=== PATIENT | female | born 1960 ===

== ENCOUNTER → 2023-11-19 07:57 | Outpatient (REF) | payer BC, SELFPAY | LOC: RAD 07:57 | PROVIDERS: ATTENDING PHYSICIAN Physician Assistant | DX: J40 Bronchitis, not specified as acute or chronic (principal); J45.20 Mild intermittent asthma, uncomplicated; R05.1 Acute cough | CPT/HCPCS: 71046 ==

== ENCOUNTER → 2024-06-14 14:50 | Outpatient (REF) | payer BC, SELFPAY | LOC: RCS 14:50 | PROVIDERS: ATTENDING PHYSICIAN Nurse Practitioner Gerontology; FAMILY PHYSICIAN Physician Assistant | DX: R00.2 Palpitations (principal); I34.0 Nonrheumatic mitral (valve) insufficiency | CPT/HCPCS: 93306 ==

== ENCOUNTER 2024-09-13 05:57 | Emergency (ER) | payer BC, SELFPAY ==
[2024-09-13 05:59] VITALS: BMI 28.2
[2024-09-13 06:01] VITALS: BP 176/75
--- NOTE | 2024-09-13 06:12 | ED.GENMED ---
History of Present Illness
General
Chief Complaint: Chest Pain
Source: patient and ambulance crew
Exam Limitations: none
Time Seen by Provider: 09/13/24 06:05
Nursing documentation reviewed up to this point in time: agreed with
History of Present Illness
History of Present Illness:
64-year-old female presents to the emergency department complaining of heart racing, dizziness, lightheaded and pressure in her chest. It is in the middle of her chest. This occurred about 30 minutes ago.
Past History
Past History
ED Past Medical History: Arrthythmia (palpitations)
ED Past Surgical History: Orthopedic (knee and hip surgeries)
Patient has exhibited threatening behavior?: No
PSI?: No
Social History
Tobacco: Non-smoker
Alcohol: Occasional (1 glass of wine)
Drug: None
Personal:
Living: with family
Employment: Employed
Family History
Family History: CAD
Review of Systems
Review of Systems
Allergies reviewed?: Yes
All Other Systems: Not applicable
Constitutional: Reports no symptoms
EENT: Reports mouth pain
Respiratory: Reports trouble breathing
Cardiac: Reports chest pain and palpitations
ABD/GI: Reports no symptoms
: Reports no symptoms
Musculoskeletal: Reports no symptoms
Skin: Reports no symptoms
Neurological: Reports no symptoms
Endocrine: Reports no symptoms
Hematologic/Lymphatic: Reports no symptoms
Psychiatric: Reports no symptoms
Phy Exam
Physical Exam
Physical Exam:
Physical Exam
General: no apparent distress, not acutely ill
Neck: supple. no meningeal signs. normal posterior pharynx
Heart: s1/s2 regular rate and rhythm, no murmur. equal radial
pulses.
HEENT: Pupils equal round reactive to light, EOMI
Lungs: no acute respiratory distress. clear bilaterally
Abdomen: normal bowel sounds. not tender. no CVAT
Neuro: alert and oriented. no focal neurological deficits cranial nerves II through XII intact
Skin: no rash
Psychiatric: well kept. interactive and cooperative
Extremities: no edema. no calf tenderness. negative homans. good distal pulses
Scores
Heart Score for Chest Pain Patients
STEMI patient?: No
History: Slightly or Non-Suspicious
ECG: Normal
Age: >/= 65 years
Risk Factors: No Risk Factors
Troponin: </= Normal Limit
Heart Score for Chest Pain Patients: 2
Heart Score Risk: 2.5% MACE over next 6 weeks
Course
Orders/Labs/Results
Orders:
Orders
09/13/24 06:01
Electrocardiogram (*1) Urgent
Reason for Study: Chest Pain
Cardiac Monitoring- Treatment ONCE
EKG- Treatment ONCE
IV Insert/Care/Rem.- Treatment PRN
O2 Therapy [RESP] Urgent
Titrate/Wean O2 to maintain O2 sat greater than (%): 90
Special Instructions: Maintain sats >/=90%
Pulse Ox/spot Check [RESP] Urgent
Quantity: 1
Special Instructions: ON ROOM AIR
09/13/24 06:11
CR Chest - 2 Views Urgent
Comment:
Reason For Exam: chest pain
09/13/24 06:12
Aspirin Chewable [Low Strength Aspirin] 324 mg PO NOW STA
09/13/24 06:15
Complete Blood Count/With Diff Urgent
Comprehensive Metabolic Panel Urgent
D-Dimer Urgent
Troponin I Urgent
09/13/24 07:28
CT Chest Pe Study Urgent
Comment:
Reason For Exam: chest pain, short of breath, elevated ddimer
09/13/24 11:10
Troponin I Urgent
Abnormal Lab Results
09/13/24
06:15
Absolute Lymphs (auto) 3.9 H 10^3/uL
(1.2-3.4)
Neutrophils % 28.0 L %
(42.2-75.2)
Lymphocytes % 61.9 H %
(20.5-51.1)
D-Dimer 0.67 H ug/mlFEU
(0.00-0.50)
Glucose 138 H mg/dl
(70-99)
09/13/24 06:15
09/13/24 06:15
Vital Signs
Initial and Last Documented VS:
Initial Vital Signs
Pulse Resp BP Pulse Ox
98 17 176/75 100
09/13/24 06:01 09/13/24 06:01 09/13/24 06:01 09/13/24 06:01
Last Documented Vital Signs
Temp Pulse Resp BP Pulse Ox
97.5 F 73 16 147/71 96
09/13/24 06:12 09/13/24 09:00 09/13/24 09:00 09/13/24 09:00 09/13/24 08:00
MDM/Problems Addressed
Differential Diagnosis Includes:
Dysrhythmia, PE, ACS
MDM/Problems Addressed:
64-year-old female with palpitations and chest discomfort. No signs of ACS or PE. Patient stable for discharge. Follow-up with cardiology. Return cautions given.
Chronic conditions affecting care: HTN and Arrhythmia
Acute Exacerbation and/or Progression of Chronic Illness: HTN
*Radiology
Radiology exam reviewed: radiology read reviewed (Chest x-ray no acute findings, CT chest no acute findings)
*Pulse Oximetry
Patient hypoxic: no
*EKG
Interpreted by ED Provider?: Yes
EKG Intrepretation Date: 09/13/24
EKG Intrepretation Time: 06:04
Interpretation: abnormal
Comparison EKG: no changes
Heart Rate: 101
Rate: tachycardiac
Rhythm: sinus tachycardia
Webster: normal axis
Interval: normal interval
QRS Pattern: normal QRS
Ischemia: no ischemia
*Systems Integration Manager Interpretation
Rate: normal
Interpretation: normal
Heart Rate: 88
Rhythm: sinus
*Critical Care Note
Total Time (30-74mins, 75-104mins- exclusive of procedures): Not Applicable
Patient Management
Social determinants of health affecting care: Living situation and Strong social support
Escalation/DeEscalation of care consider admission/obs:
Admit not indicated
ED Attending Note
-
Portions of this chart may have been created with voice recognition software.� Occasional wrong word or��sound alike� substitutions may have occurred due to the inherent limitations of voice recognition software.
Discharge Plan
Departure
Patient Disposition: Home (Routine Discharge)
Date of Disposition: 09/13/24
Time of Disposition: 11:56
Patient with high blood pressure during this ER visit?: Yes
Condition: Good
Discharge Problem:
Palpitations
Instructions: Palpitations ED, BLOOD PRESSURE
Prescriptions:
No Action
omeprazole 40 MG capsule,delayed release(DR/EC)
40 mg PO DAILY
alprazolam 0.5 MG tablet
0.5 mg PO HS
metoprolol tartrate 12.5 MG tablet
12.5 mg PO BID
epinephrine [EpiPen] 0.3 MG/0.3/SYRINGE auto-injector
0.3 mg IM PRN PRN (Reason: allergic reaction)
Patient Comments:
never has used
levalbuterol tartrate 1 PUFF HFA aerosol inhaler
1 puff inhalation R Q4HPRN PRN (Reason: wheezing)
Referrals:
Amanda Sierra PA [Family Provider] -
Tiffany Stephens MD [Active] - Call in 1-3 days for appt
Interventions
Interventions:
*Risk Screen - Suicide Last Done: 09/13/24 06:08
*General Assessment Last Done: 09/13/24 06:04
*Neglect/Abuse Screening Last Done: 09/13/24 06:07
ED- Cardiac Assessment Last Done: 09/13/24 06:03
Discharge Date and Time
Print Language: TURKISH
[2024-09-13] MEDS: LOW STRENGTH ASPIRIN 324 MG PO (06:24)
[2024-09-13 06:31] LABS: Hematocrit 41.2 % (37.0-47.0); Hemoglobin 13.7 g/dL (12.0-16.0); Mean Corp Hgb Conc. 33.3 g/dL (33.0-37.0); Mean Corpuscular Hgb 30.2 pg (27.0-31.0); Mean Corpuscular Volume 90.7 fL (81.0-99.0); Platelet Count 295 10^3/uL (130-400); Red Blood Cell Count 4.54 10^6/uL (4.20-5.40); Red Cell Dist. Width 12.9 % (11.5-14.5); White Blood Cell Count 6.3 10^3/uL (4.8-10.8)
[2024-09-13 06:35] LABS: D-Dimer 0.67 ug/mlFEU (0.00-0.50)
[2024-09-13 06:45] LABS: ALT (SGPT) 17 U/L (0-35); AST (SGOT) 22 U/L (14-36); Albumin 4.8 g/dl (3.5-5.0); Alkaline Phosphatase 52 U/L (38-126); Blood Urea Nitrogen 16 mg/dl (7-17); Calcium 10.1 mg/dl (8.4-10.2); Carbon Dioxide 23 mmol/L (22-30); Chloride 104 mmol/L (98-107); Estimated Creatinine Clearance 110 ml/min; Glucose 138 mg/dl (70-99); Sodium 139 mmol/L (135-145); Total Bilirubin 0.4 mg/dl (0.2-1.3); Total Protein 7.6 g/dl (6.3-8.2); eGFR > 60.00
[2024-09-13 06:55] LABS: Troponin I < 0.012 ng/ml
[2024-09-13 07:17] VITALS: BP 156/74
[2024-09-13 07:58] LABS: % Eosinophils 2.4 % (0-6); % Immature Granulocytes 0.2 % (0-0.5); % Lymphocytes 61.9 % (20.5-51.1); % Monocytes 6.5 % (1.7-9.3); Absolute Basophils 0.1 10^3/uL (0-0.2); Absolute Eosinophils 0.2 10^3/uL (0-0.7); Absolute Lymphocytes 3.9 10^3/uL (1.2-3.4); Absolute Monocytes 0.4 10^3/uL (0.1-0.6); Absolute Neutrophils 1.8 10^3/uL (1.4-6.5); Nucleated Red Blood Cells % 0 %
[2024-09-13 08:00] VITALS: BP 154/72
[2024-09-13 09:00] VITALS: BP 147/71
[2024-09-13 11:42] LABS: Troponin I < 0.012 ng/ml
[2024-09-13 12:32] VITALS: BP 146/73
== END 2024-09-13 13:00 | disposition home or self-care (01) ==
LOC: EMR 05:57
PROVIDERS: Emergency Medicine; EMERGENCY PHYSICIAN Emergency Medicine; FAMILY PHYSICIAN Physician Assistant
DX: R00.2 Palpitations (principal); I10 Essential (primary) hypertension
CPT/HCPCS: 99285; 71046; 71275; 80053; 84484; 85025; 85379; 93005; Q9967

== ENCOUNTER 2025-01-02 13:31 | Emergency (ER) | payer BC, SELFPAY ==
[2025-01-02 13:42] VITALS: BP 147/73
--- NOTE | 2025-01-02 14:14 | ED.GENMED ---
History of Present Illness
General
Chief Complaint: Musculo-Skeletal Complaint
Source: patient
Exam Limitations: none
Time Seen by Provider: 01/02/25 14:07
History of Present Illness
History of Present Illness:
See MDM
Past History
Past History
ED Past Medical History: Arrthythmia (palpitations)
ED Past Surgical History: Orthopedic (knee and hip surgeries)
Patient has exhibited threatening behavior?: No
PSI?: No
Social History
Tobacco: Non-smoker
Alcohol: Occasional (1 glass of wine)
Drug: None
Personal:
Living: with family
Employment: Employed
Family History
Family History: CAD
Phy Exam
Physical Exam
Physical Exam:
See MDM
Course
Orders/Labs/Results
Orders:
Orders
01/02/25 13:35
Ankle, left 3 view CR [CR Ankle - Left Min 3 Views ] Urgent
Comment:
Reason For Exam: pain
01/02/25 13:53
Foot, Left 3 View [CR Foot - Left Min 3 Views] Urgent
Comment:
Reason For Exam: pain
01/02/25 14:13
boot [Ortho Boot Left- Treatment] ONCE
Short or tall?: Tall
Acetaminophen [Tylenol] 650 mg PO NOW STA
Lumbar Spine Complete, 4 View [CR Lumbar Spine Comp Min 4 Vw*] Urgent
Comment:
Reason For Exam: fall, low back pain
Vital Signs
Initial and Last Documented VS:
Initial Vital Signs
Temp Pulse Resp BP Pulse Ox
98.0 F 73 18 147/73 100
01/02/25 13:42 01/02/25 13:42 01/02/25 13:42 01/02/25 13:42 01/02/25 13:42
Last Documented Vital Signs
Temp Pulse Resp BP Pulse Ox
98.0 F 73 18 147/73 100
01/02/25 13:42 01/02/25 13:42 01/02/25 13:42 01/02/25 13:42 01/02/25 13:42
MDM/Problems Addressed
Differential Diagnosis Includes:
HPI and MDM Narrative:
64-year-old female presenting for evaluation of back and left ankle pain. Patient was with her dog and it caused her to trip and fall backwards. Patient states that she bent her left leg and she fell on her back. Ankle and foot x-ray were
performed prior to my evaluation. I do not appreciate a fracture. She does have tenderness mostly along the left lateral malleolus and base of left fifth metatarsal but x-rays are negative. The foot is otherwise neurovascularly intact. Will
place in a long boot. Given the ongoing back pain, will obtain x-ray of the lumbar spine as well. I did offer pain medicine but patient states that Tylenol is the only medication she can tolerate
Physical exam
General: Well appearing and non-toxic
HEENT: protecting airway
Neck: appears supple
CV: No evidence of cyanosis
Resp: No accessory muscle use
Abd: Non-distended
Back: Mild paralumbar muscle tenderness. No bruising
Extremities: No deformities. Tenderness to left lateral malleolus and base of left fifth metatarsal. Extremity neurovascular intact. No ecchymosis noted
Neuro: alert
Psych: Normal affect
Skin: Intact
Problems Addressed including Acute and Chronic Conditions affecting care:
1. Left foot and ankle pain
Acuity: acute
Prognosis: stable
Details: X-rays negative for fracture. Discussed likely sprain. Will place in boot
2. Back pain
Acuity: acute
Prognosis: stable
Details: Will obtain lumbar x-ray
Updates
Radiology called indicating that there is a small avulsion fracture of the talus. Patient updated
Differential Diagnosis (but not limited to): Lumbar strain, ankle sprain, ankle fracture
Testing considered: Pelvis x-ray
Drug therapy (if applicable): OTC meds, please see d/c instruction regarding Rx drugs
Amount and/or Complexity of Data Reviewed
Clinical info obtained from: Patient
External data reviewed: N/A
Labs I independently reviewed (but not limited to): N/A
Radiology: X-ray independently reviewed: No fracture seen on foot or ankle x-ray
Pulse Ox: not hypoxic
EKG independently reviewed: N/A
Fruit Stuffer: N/A
Critical Care: N/A
Risk of Complication:
Social Determinants of health: Good social support
Discussed with other providers: N/A
Escalation of Care includes Admit/Obs: After being observed in the Emergency Department, pt stable for discharge.
Occasional wrong word or 'sound a like' substitutions may have occurred due to the inherent limitations of voice recognition software. Read the chart carefully and recognize, using context, where substitutions have occurred.
*Critical Care Note
Total Time (30-74mins, 75-104mins- exclusive of procedures): Not Applicable
ED Attending Note
-
Portions of this chart may have been created with voice recognition software.� Occasional wrong word or��sound alike� substitutions may have occurred due to the inherent limitations of voice recognition software.
Discharge Plan
Departure
Patient Disposition: Home (Routine Discharge)
Date of Disposition: 01/02/25
Time of Disposition: 15:43
Patient with high blood pressure during this ER visit?: Yes
Discharge Problem:
Avulsion fracture of talus
Instructions: Ankle Fracture (DC), BLOOD PRESSURE
Prescriptions:
No Action
omeprazole 40 MG capsule,delayed release(DR/EC)
40 mg PO DAILY
alprazolam 0.5 MG tablet
0.5 mg PO HS
metoprolol tartrate 12.5 MG tablet
12.5 mg PO BID
epinephrine [EpiPen] 0.3 MG/0.3/SYRINGE auto-injector
0.3 mg IM PRN PRN (Reason: allergic reaction)
Patient Comments:
never has used
levalbuterol tartrate 1 PUFF HFA aerosol inhaler
1 puff inhalation R Q4HPRN PRN (Reason: wheezing)
Referrals:
Scar Kline DPM [Active] -
Activity Restrictions/Additional Instructions:
Please return for any worsening symptoms.
You may return at any time if you have further concerns.
Please follow up with the foot doctor at the first available appointment, preferably this week.
Thank you for choosing [facility].
Interventions
Interventions:
*Risk Screen - Suicide Last Done: 01/02/25 13:42
*General Assessment Last Done: 01/02/25 13:42
Discharge Date and Time
Print Language: VENEZUELAN
[2025-01-02] MEDS: TYLENOL 650 MG PO (14:31)
== END 2025-01-02 16:17 | disposition home or self-care (01) ==
LOC: EMR 13:31
PROVIDERS: EMERGENCY PHYSICIAN Student in an Organized Health Care Education/Training Program; FAMILY PHYSICIAN Physician Assistant
DX: S92.15 Avulsion fracture (chip fracture) of talus (principal); W19.XXXA Unspecified fall, initial encounter; Z82.49 Family history of ischemic heart disease and other diseases of the circulatory system
CPT/HCPCS: 99283; 72110; 73610; 73630

== ENCOUNTER → 2025-01-05 14:43 | Outpatient (REF) | payer BC, SELFPAY | LOC: WDC 14:43 | PROVIDERS: ATTENDING PHYSICIAN Nurse Practitioner Family | DX: Z12.31 Encounter for screening mammogram for malignant neoplasm of breast (principal) | CPT/HCPCS: 77063; 77067 ==